=== PATIENT | female | born 1955 | race Caucasian/White ===

== ENCOUNTER 2019-02-08 19:51 | Observation (INO) | payer MEDICARE ==
[2019-02-08 20:23] LABS: #Basophils 0.1 thou/uL (0.0-0.2); #Eosinphils 0.2 thou/uL (0.0-0.7); #Lymphocytes 3.3 thou/uL (1.20-3.40); #Monocytes 0.9 thou/uL (0.11-0.59); #Neutrophils 7.2 thou/uL (1.40-6.50); %Eosinophils 1.9 % (0.0-10.0); %Lymphocytes 27.7 % (21.0-51.0); %Monocytes 7.8 % (0.0-10.0); %Neutrophils 61.6 % (42.0-75.0); Hemoglobin 13.7 g/dL (12.0-16.0); Mean Corpuscular Hemoglobin 29.7 pg (27.0-31.0); Mean Corpuscular Volume 92.9 fL (78.0-98.0); Mean Platelet Volume 8.7 fL (7.4-10.4); Platelet Count 285 thou/uL (130-400); RBC Distribution Width 12.7 % (11.5-14.5); Red Blood Cell (RBC) Count 4.62 mill/uL (4.20-5.40); White Blood Cell (WBC) Count 11.7 thou/uL (4.8-10.8)
--- NOTE | 2019-02-08 20:30 | RAD ---
Frontal radiograph chest: 02/08/2019 COMPARISON: 01/27/2016 HISTORY: Headache, fall FINDINGS: Stable transvenous pacing device and midline sternotomy wires. No pneumothorax or pleural f luid. No focal consolidation or alveolar edema. IMPRESSION: No acute findings.
[2019-02-08 20:41] LABS: ALT (SGPT) 17 U/L (8-55); AST (SGOT) 20 U/L (5-34); Albumin 3.8 g/dL (3.4-4.8); Alkaline Phosphatase 124 U/L (40-150); Anion Gap 14 mmol/L (10-20); BUN (Urea Nitrogen) 13 mg/dL (9.8-20.1); Bilirubin, Total 0.4 mg/dL (0.2-1.2); Calc. Creatinine Clearance 0 mL/min (70-130); Calcium 8.8 mg/dL (7.8-10.44); Carbon Dioxide 24 mmol/L (23-31); Chloride 105 mmol/L (98-107); Estimated GFR-MDRD 51; Globulin 2.7 g/dL (2.4-3.5); Glucose 103 mg/dL (80-115); Magnesium 1.9 mg/dL (1.6-2.6); Potassium 3.1 mmol/L (3.5-5.1); Protein, Total 6.5 g/dL (6.0-8.3); Sodium 140 mmol/L (136-145)
--- NOTE | 2019-02-08 20:59 | CT ---
Head CT without contrast 02/08/2019: COMPARISON: 04/24/2015 HISTORY: Fall, trauma, pain TECHNIQUE: Axial CT imaging at 5 mm intervals from vertex through skull base without contrast FINDINGS: The imaged paranasal sinuses are well aerated. There is partial opacification of the mastoi d air cells inferiorly on the left. No displaced calvarial fracture. No intracranial hemorrhage, midline shift, or mass effect. IMPRESSION: No intracranial hemorrhage or displaced calvarial fracture.
--- NOTE | 2019-02-08 21:03 | CT ---
CT cervical spine without contrast: 02/08/2019 COMPARISON: None available HISTORY: Fall, trauma, pain TECHNIQUE: Axial CT imaging at 2.5 mm intervals through the cervical spine without contrast. Coronal and sagittal reformatted imaging obtained. FINDINGS: C1 ring is intact. Midline sternotomy wires are present. Transvenous pacing device noted. T here is degenerative change at the atlantoaxial interspace. There is posterior osteophyte formation at C7-T1. Imaged lung apices unremarkable. No evidence for fracture or dislocation. No prevertebral soft tissue swelling. No anterolisthesis or retrolisthesis. Craniocervical junction, atlantoaxial interspace, dens, and cervicothoracic junction appear unremarkable. IMPRESSION: No acute findings.
[2019-02-08] MEDS ORDERED: Acetaminophen 325 MG TAB PO PRN (21:49)
[2019-02-08] MEDS ORDERED: Potassium Chloride 20 MEQ TAB PO SCH (22:00)
--- NOTE | 2019-02-08 22:26 | PDOC.FPRHP ---
- Allergies/Adverse Reactions Allergies Allergy/AdvReac Type Severity Reaction Status Date / Time cephalexin monohydrate Allergy Severe Swollen Verified 01/27/16 23:52 [From Keflex] Lips cinnamon Allergy Intermediate Verified 01/27/16 23:52 hydromorphone HCl Allergy Intermediate Verified 01/27/16 23:52 [From Dilaudid] iodine Allergy Intermediate Verified 01/27/16 23:52 ondansetron Allergy Intermediate Verified 01/27/16 23:52 Penicillins Allergy Intermediate Verified 01/27/16 23:52 - Home Medications Medication Instructions Recorded Confirmed Type ALPRAZolam [Xanax] 1 mg PO TID 04/25/15 02/08/19 History Clopidogrel Bisulfate [Clopidogrel] 75 mg PO DAILY 04/25/15 02/08/19 History Furosemide [Lasix] 40 mg PO DAILY 04/25/15 02/08/19 History Nitroglycerin [Nitrostat] 0.4 mg SL Q5MIN PRN 04/25/15 02/08/19 History DULoxetine [Cymbalta] 60 mg PO DAILY #0 cap 04/27/15 02/08/19 Rx Metoprolol Tartrate [Lopressor] 12.5 mg PO BID #0 tab 04/27/15 02/08/19 Rx Acetaminophen With Codeine 1 tablet PO Q6HR PRN 01/27/16 02/08/19 History [Tylenol with Codeine #3] Aspirin 325 mg PO DAILY 01/27/16 02/08/19 History Cyclobenzaprine [Flexeril] 10 mg PO TID PRN 01/27/16 02/08/19 History Isosorbide Mononitrate [Imdur ER] 30 mg PO DAILY 01/27/16 02/08/19 History Promethazine HCl 25 mg PO QID 01/27/16 02/08/19 History hydrOXYzine HCl [Hydroxyzine HCl] 25 mg PO QID 01/27/16 02/08/19 History Zolpidem Tartrate 10 mg PO HS PRN 01/28/16 02/08/19 History Pantoprazole [Protonix] 40 mg PO DAILY #0 tab 01/31/16 02/08/19 Rx Methocarbamol [Robaxin-750] 750 mg PO DAILY 02/08/19 02/08/19 History Potassium Chloride 1 tab PO BID 02/08/19 02/08/19 History Pregabalin [Lyrica] 75 mg PO DAILY 02/08/19 02/08/19 History Sacubitril/Valsartan 49/51 1 tab PO DAILY 02/08/19 02/08/19 History [Entresto 49 mg-51 mg Tablet] Spironolactone 25 mg PO DAILY 02/08/19 02/08/19 History busPIRone HCl [Buspar] 10 mg PO DAILY 02/08/19 02/08/19 History tiZANidine HCl [Tizanidine HCl] 1 tab PO DAILY 02/08/19 02/08/19 History - History PMHx: PSHx: FHx: Social: - Vital signs BP: [] HR: [] RR: [] Tmax: [] Pox: []% on [] Wt: [] FMR H&P: Results - Labs Result Diagrams: 02/08/19 20:13 02/08/19 20:13 Lab results: WBC 11.7 thou/uL (4.8-10.8) H 02/08/19 20:13 Hgb 13.7 g/dL (12.0-16.0) 02/08/19 20:13 Hct 42.9 % (36.0-47.0) 02/08/19 20:13 MCV 92.9 fL (78.0-98.0) 02/08/19 20:13 Plt Count 285 thou/uL (130-400) 02/08/19 20:13 Neutrophils % 61.6 % (42.0-75.0) 02/08/19 20:13 Sodium 140 mmol/L (136-145) 02/08/19 20:13 Potassium 3.1 mmol/L (3.5-5.1) L 02/08/19 20:13 Chloride 105 mmol/L (98-107) 02/08/19 20:13 Carbon Dioxide 24 mmol/L (23-31) 02/08/19 20:13 BUN 13 mg/dL (9.8-20.1) 02/08/19 20:13 Creatinine 1.09 mg/dL (0.6-1.1) 02/08/19 20:13 Glucose 103 mg/dL (80-115) 02/08/19 20:13 Calcium 8.8 mg/dL (7.8-10.44) 02/08/19 20:13 Total Bilirubin 0.4 mg/dL (0.2-1.2) 02/08/19 20:13 AST 20 U/L (5-34) 02/08/19 20:13 ALT 17 U/L (8-55) 02/08/19 20:13 Alkaline Phosphatase 124 U/L (40-150) 02/08/19 20:13 Serum Total Protein 6.5 g/dL (6.0-8.3) 02/08/19 20:13 Albumin 3.8 g/dL (3.4-4.8) 02/08/19 20:13 FMR H&P: Upper Level - Plan Date/Time: 02/08/192214 PCP: PHIL Funk in [place], [place] HPI: This is a 63 yo F being admitted for workup of syncope. Significant hx includes TIAx4 and CVA x1 by her description, CABG, Stent x5, pacemaker. Her chief complaint for presenting to the ER was cramping and twitching in my legs. She states that this morning around 430 AM she was walking to the kitchen to get some water and all the sudden blacked out, she states her strength all over her body went weak and she hit her head on the ground. She thinks she passed out for about 10 min and when she woke up she had urinated on herself and was confused. She is not exactly sure how long she had passed out but knows it was not past 5am. She did not come to the ER until night time because she felt ok during the day but then noticed her legs kept shaking. She was worried about a heat stroke because she went to the store yesterday and it was very hot outside. Does not drink much water, tea and dr pepper. Has A/C in her house, but states she felt hot all day. She is usually able to ambulate with cane and walker. In the ED the patient is able to ambulate to the restroom on her own. PMH: CABG, parox. Afib, 5 stents, pacemaker, HLD, HTN, IBS, RLS, fibromyalgia, neuropathy, CVA x1, TIAx4 PSH: rios, cabg, hyst Meds: see above Allergies: see above Soc Hx: smoke since age 8, 2ppd at the most, 1ppd now, denies alcohol/drugs Fm Hx: non-contributory ED course: CT head neck no acute process REVIEW OF SYSTEMS: Gen: no fever, chills, or sweats Neuro: see hpi Eyes: no visual changes ENT: no hearing changes, no sore throat, no congestion Resp: denies cough, SOB Card: no chest pain, denies palpitations GI: vomited x1 today, no nausea or abd pain currently MSK: chronic joint pain Heme: no easy bruising/bleeding, no blood thinners (Plavix, ASA) Skin: no rash, no erythema Vitals: BP: 135/63, Pulse: 80, Resp: 18, O2 sat: 96 on Room Air Wt: 65 kg PHYSICAL EXAMINATION: General: NAD, alert and oriented x3 HEENT: PERRLA, EOMI, normal sclera, oropharynx without erythema or exudate Neck: Supple. Full ROM. Heart/Cardiovascular System: RRR, Cap refill < 3 seconds, no rub, no murmur Lungs/Respiratory System: CTA-B, no resp distress Abdomen/Gastro-Intestinal System: no abdominal tenderness, normal bowel sounds Extremities: Warm extremities. No cyanosis or edema Neuro: No gross deficits appreciated. CN 2-12 grossly intact. Visual dang intact. Family Assessment Worker strength 5/5 bilaterally, no upper extremity or lower extremity drift, no dysmetria, no dysdiadocokinesia, no nystagmus, normal gait with walker , HINTS negative Psychiatry: Awake, Alert and cooperative with exam Skin: No lesions, rashes, or ulcers Musculoskeletal: Full ROM EKG: NSR, no acute abnormalities A/P: # Syncope 2/2 dehydration vs seizure vs TIA vs arrhythmia vs idiopathic - ordered orthostatics, prolactin, ck, repeat trop, carotid US, UDS, telemetry - suspect dehydration as primary source based on history - NIHSS: 0, HINTS neg- TIA possible with her history, consider MRI if no other source emerges - NS 500ml bolus, 100ml/hr # Polypharmacy - could have contributed, wean on d/c as able # Afib (per chart review), pacemaker - RRR currently, no blood thinners - consider embolic source, consider KIMBERLY - does not appear to be most likely source currently - telemetry, interrogate pacemaker # CHF - EF 50-55% in January 2016 - ordered BNP # hx CABG, stents x5 - repeat trop # HTN, HLD - home meds # chronic pain - Home tyl #3 Fluids: NS 100ml/hr Code: full PPx: SCDmiguelx Dispo: Obs Addendum - Attending - Attending Attestation Date/Time: 02/08/19 [id number] I personally evaluated the patient and discussed the management with Dr. Godfrey I agree with the History, Examination, Assessment and Plan documented above with any addition or exceptions noted below.
[2019-02-08] MEDS ORDERED: Nitroglycerin 0.4 MG TAB (25 Tab Bottle) SL PRN (22:31)
[2019-02-08] MEDS ORDERED: Acetaminophen/Codeine 30-300mg Tablet PO PRN (22:31)
[2019-02-08] MEDS ORDERED: PROVENTIL INHALER 6.7 G (200 INHALATIONS) INH PRN (23:59)
[2019-02-09] MEDS ORDERED: Zolpidem Tartrate 5 MG TAB PO PRN (00:01)
[2019-02-09 00:15] VITALS: BMI 28.1
[2019-02-09 00:21] LABS: Troponin I Less than 0.010 ng/mL (< 0.028)
[2019-02-09] MEDS: Sodium Chloride 0.9% 1,000 ML IV SCH ×2 (00:25→07:45)
[2019-02-09] MEDS ORDERED: DULoxetine 60 MG CAP PO SCH ×3 (00:45→09:00)
[2019-02-09] MEDS ORDERED: Nicotine 14 MG PATCH TD SCH (01:00)
[2019-02-09 02:13] LABS: Bilirubin Negative (Negative); Blood, Urine Negative (Negative); Clarity Clear (Clear); Glucose, Urine (Dipstick) Normal (Negative); Leukocyte 25 Leu/uL (Negative); Nitrite Negative (Negative); Protein, Urine (Dipstick) Negative (Neg-Trace); Squamous Epithelial 0-3 HPF (0-3); Urobilinogen Normal mg/dL (Less than 2)
[2019-02-09 02:14] LABS: Bacteria/HPF 1+ HPF (None Seen)
[2019-02-09 02:27] LABS: Cocaine Metabolite Screen Not Detected (NotDetected); Medtox Reader # READER 4; Methamphetamine Not Detected (NotDetected); Phencyclidine (PCP) Not Detected (NotDetected); THC/Cannabinoid Screen Not Detected (NotDetected)
[2019-02-09 02:28] LABS: Amphetamine Not Detected (NotDetected); Barbiturates Screen Not Detected (NotDetected); Benzodiazepine Screen Not Detected (NotDetected); Medtox Control Line Valid? VALID (VALID); Methadone Not Detected (NotDetected); Opiate Screen Detected (NotDetected); Oxycodone Screen Not Detected (NotDetected); Tricyclic Screen Not Detected (NotDetected)
--- NOTE | 2019-02-09 06:30 | PDOC.FM ---
- Subjective Subjective: Patient is seen lying flat in bed this morning watching TV. She was admitted to the night team late last night after a syncopal episode where she was unconscious for approximately 10 minutes (self-reported, non-witnessed) & hit her head, as well as her legs have been "twitching" involuntarily. This morning the patient states she feels well and does not have any current complaints.. Her legs have not had any more symptoms overnight. Patient has an extensive cardiac history with multiple stent placements and has a pacemaker in place that was interrogated approx. 3 months ago with no issues found. Patient states she sees multiple physicians in the [place] area, including Cardiology. She states she has an appointment with her PCP in [place] on Sunday this week. ROS: Denies fever/chills, chest pain, palpitations, cough, congestion, shortness of breath, vision or hearing changes, nausea, vomiting, abdominal pain , diarrhea, constipation, easy bruising/bleeding, rash. Has chronic pain in her legs. - Objective MAR Reviewed: Yes Vital Signs & Weight: Vital Signs (12 hours) Temp Pulse Resp BP Pulse Ox 02/09/19 03:34 98.2 F 73 18 107/62 96 02/08/19 23:07 98.1 F 72 18 129/64 97 Weight Admit Weight 67.676 kg Weight 67.676 kg I&O: 02/07/19 02/08/19 02/09/19 06:59 06:59 06:59 Intake Total 900 Output Total 200 Balance 700 Result Diagrams: 02/09/19 06:43 02/09/19 06:43 Radiology Reviewed by me: Yes Radiology: CXR: no acute pathology Head CT: no intracranial hemorrhage or displaced fracture Cervical CT: no acute pathology Phys Exam - Physical Examination Constitutional: NAD HEENT: PERRLA, moist MMs, sclera anicteric Neck: no JVD, supple, full ROM Respiratory: no wheezing, clear to auscultation bilateral Cardiovascular: RRR, no significant murmur No carotid bruits. Gastrointestinal: soft, non-tender, positive bowel sounds Musculoskeletal: pulses present 1+ non-pitting edema; Strength in bilateral UE & LE is 4/5 Neurological: non-focal, normal sensation, moves all 4 limbs Normal gait with walker Psychiatric: normal affect, A&O x 3 Skin: no rash, normal turgor Dx/Plan (1) Syncope Code(s): R55 - SYNCOPE AND COLLAPSE Status: Acute Qualifiers: Syncope type: heat syncope Encounter type: initial encounter Qualified Code(s): T67.1XXA - Heat syncope, initial encounter (2) Polypharmacy Code(s): Z79.899 - OTHER ASSISTED (CURRENT) DRUG THERAPY Status: Chronic (3) Atrial fibrillation Code(s): I48.91 - UNSPECIFIED ATRIAL FIBRILLATION Status: Chronic Qualifiers: Atrial fibrillation type: paroxysmal Qualified Code(s): I48.0 - Paroxysmal atrial fibrillation (4) CHF (congestive heart failure) Code(s): I50.9 - HEART FAILURE, UNSPECIFIED Status: Chronic Qualifiers: Heart failure type: unspecified Heart failure chronicity: chronic Qualified Code(s): I50.9 - Heart failure, unspecified (5) HTN (hypertension) Code(s): I10 - ESSENTIAL (PRIMARY) HYPERTENSION Status: Chronic Qualifiers: Hypertension type: essential hypertension Qualified Code(s): I10 - Essential (primary) hypertension (6) HLD (hyperlipidemia) Code(s): E78.5 - HYPERLIPIDEMIA, UNSPECIFIED Status: Chronic Qualifiers: Hyperlipidemia type: mixed hyperlipidemia Qualified Code(s): E78.2 - Mixed hyperlipidemia (7) Chronic pain Code(s): G89.29 - OTHER CHRONIC PAIN Status: Chronic Qualifiers: Chronic pain type: chronic pain syndrome Qualified Code(s): G89.4 - Chronic pain syndrome (8) Hypokalemia Code(s): E87.6 - HYPOKALEMIA Status: Acute (9) CAD (coronary artery disease) Code(s): I25.10 - ATHSCL HEART DISEASE OF [place] CORONARY ARTERY W/O ANG PCTRS Status: Chronic Qualifiers: Coronary Disease-Associated Artery/Lesion type: [place] artery [place] vs. transplanted heart: [place] heart (10) Tobacco dependence Code(s): F17.200 - NICOTINE DEPENDENCE, UNSPECIFIED, UNCOMPLICATED Status: Chronic (11) GERD (gastroesophageal reflux disease) Code(s): K21.9 - GASTRO-ESOPHAGEAL REFLUX DISEASE WITHOUT ESOPHAGITIS Status: Chronic Qualifiers: Esophagitis presence: without esophagitis Qualified Code(s): K21.9 - Gastro -esophageal reflux disease without esophagitis - Plan Plan: 1. Syncope, likely secondary to dehydration. R/O seizure vs TIA vs arrhythmia - orthostatics negative, prolactin 15.88, CK 57, Trop neg x2, UDS positive for opioids only (home med Tylenol #3) - carotid U/S to be completed this morning - place on telemetry - suspect dehydration as primary source based on history - NIHSS: 0, HINTS neg- TIA possible with her history, consider MRI if no other source emerges - NS 500ml bolus, 100ml/hr 2. Polypharmacy - could have contributed, advise her to follow up with PCP appointment on Sunday in [place] as he is primary prescriber per patient 3. Afib with pacemaker placed - Pacemaker last interrogated 3 months ago per patient who states no issued found thin - RRR currently, no blood thinners - consider embolic source, consider KIMBERLY if clinical deterioration or symptoms resume - telemetry, interrogate pacemaker 4. CHF, controlled on home meds - EF 50-55% in January 2016, patient states she had a more recent ECHO completed by medical illustrator in [place] - ordered BNP 5. Hx of CAD - hx of CABG, stents x5 - troponins neg x2 6. HTN - continue home meds, BP stable 7. HLD - Lipid panel: Tri 174, total chol 199, LDL 129, HDL 35 - currently on no home meds, states she used to take a statin - will order Pravastatin 20mg to start, will advise her to take prescription with her to the PCP appointment this week 8. Chronic pain syndrome - Home tyl #3 & Neurontin continued 9. GERD -home med Ranitidine, equivalent of Famotidine ordered 1x dose for heartburn sx 10. Hypokalemia -K 3.1, given 20mEQ of Potassium Fluids: NS 100ml/hr Code: full PPx: SCD, lovenox Dispo: Obs, with expected LOS <24hrs Addendum - Attending - Attending Attestation Date/Time: 02/09/19 [id number] I personally evaluated the patient and discussed the management with Dr. Montes I agree with the History, Examination, Assessment and Plan documented above with any addition or exceptions noted below. Syncopal episode most likely multifactorial concerned with polypharmacy and sedative effects. Recommend continued sedative Drug holiday advance activity and if w/u non revealing could continue further outpatient work up.
[2019-02-09 07:14] LABS: #Basophils 0.1 thou/uL (0.0-0.2); #Eosinphils 0.2 thou/uL (0.0-0.7); #Lymphocytes 3.4 thou/uL (1.20-3.40); #Monocytes 0.7 thou/uL (0.11-0.59); #Neutrophils 3.9 thou/uL (1.40-6.50); %Basophils 0.9 % (0.0-1.0); %Eosinophils 2.5 % (0.0-10.0); %Monocytes 8.5 % (0.0-10.0); %Neutrophils 47.1 % (42.0-75.0); Mean Corpuscular Hemoglobin 29.9 pg (27.0-31.0); Mean Corpuscular Volume 93.4 fL (78.0-98.0); Mean Platelet Volume 8.8 fL (7.4-10.4); Platelet Count 225 thou/uL (130-400); RBC Distribution Width 12.6 % (11.5-14.5); Red Blood Cell (RBC) Count 4.33 mill/uL (4.20-5.40); White Blood Cell (WBC) Count 8.3 thou/uL (4.8-10.8)
[2019-02-09 07:33] LABS: Anion Gap 12 mmol/L (10-20); BUN (Urea Nitrogen) 14 mg/dL (9.8-20.1); Calc. Creatinine Clearance 73 mL/min (70-130); Carbon Dioxide 21 mmol/L (23-31); Cardiac Risk 5.7 (Less than 4.5); Chloride 110 mmol/L (98-107); Cholesterol 199 mg/dl (< 200 Desired); Estimated GFR-MDRD 68; Glucose 94 mg/dL (80-115); HDL Cholesterol 35 mg/dL (>60 Neg Risk); LDL Cholesterol, Calculated 129 mg/dL; Potassium 3.4 mmol/L (3.5-5.1); Sodium 140 mmol/L (136-145); Triglycerides 174 mg/dL (Less than 150)
[2019-02-09] MEDS ORDERED: Potassium Chloride 20 MEQ TAB PO SCH (08:00)
[2019-02-09] MEDS ORDERED: Enoxaparin Sodium 40 MG/0.4 ML SYRINGE SC SCH (09:00)
[2019-02-09] MEDS ORDERED: Metoprolol Tartrate 25 MG TAB PO SCH ×2 (09:00)
[2019-02-09] MEDS ORDERED: Spironolactone 25 MG TAB PO SCH (09:00)
[2019-02-09] MEDS ORDERED: Sacubitril 49 MG/Valsartan 51 MG TABLET PO SCH (09:00)
[2019-02-09] MEDS ORDERED: Clopidogrel Bisulfate 75 MG TAB PO SCH (09:00)
[2019-02-09] MEDS ORDERED: Cholecalciferol (Vitamin D3) 400 UNITS TAB PO SCH (09:00)
[2019-02-09] MEDS ORDERED: Magnesium Oxide 400 MG TAB PO SCH (09:00)
[2019-02-09] MEDS ORDERED: Aspirin 325 MG TAB PO SCH (09:00)
--- NOTE | 2019-02-09 09:43 | ULT ---
CAROTID ULTRASOUND: COMPARISON: None. HISTORY: Syncope. TECHNIQUE: Multiplanar, fleming scale, and color Doppler images are obtained in a carotid ultrasound. Spectral [place] lysis of the Doppler waveforms was performed. FINDINGS: No significant plaque if visualized in either common or internal carotid artery. The Doppler wavefor ms are normal bilaterally. Peak systolic velocity in the right ICA is 77 cm/s. Peak systolic velocity in the right CCA is 84 cm /s. The right ICA/CCA ratio is 0.9. Peak systolic velocity in the left ICA is 122 cm/s. Peak systolic velocity in the left CCA is 96 cm/ s. The left ICA/CCA ratio is 1.3. Both vertebral arteries demonstrate antegrade flow without focal stenosis. IMPRESSION: No evidence of hemodynamically significant stenosis. POS: [facility]
[2019-02-09 12:15] VITALS: BP 111/56; TEMP 97.7
[2019-02-09] MEDS ORDERED: Famotidine 20 MG TAB PO SCH (12:15)
--- NOTE | 2019-02-10 14:56 | DIS ---
DATE OF ADMISSION: 02/08/2019 DATE OF DISCHARGE: 02/09/2019 ADMITTING ATTENDING: Eh Cook MD DISCHARGE ATTENDING: Eh Cook MD RESIDENT: Lee Ann Montes DO CONSULTS: OT eval-treat. PROCEDURES: Carotid Doppler. PRIMARY DIAGNOSIS: Syncope, likely secondary to dehydration. SECONDARY DIAGNOSES: 1. Polypharmacy. 2. Atrial fibrillation with pacemaker placed. 3. Congestive heart failure. 4. Coronary artery disease. 5. Hypertension. 6. Hyperlipidemia. 7. Chronic pain syndrome. 8. Gastroesophageal reflux disease. 9. Hypokalemia. DISCHARGE MEDICATIONS: 1. Furosemide (Lasix) 20 mg p.o. daily. 2. Xanax 1 mg p.o. t.i.d. 3. Nitroglycerin 0.4 mg sublingual every 5 minutes as needed. 4. Clopidogrel bisulfate 75 mg p.o. daily. 5. Acetaminophen with codeine 300 mg-30 mg 1 tablet p.o. q.6 hours as needed. 6. Cyclobenzaprine (Flexeril) 10 mg p.o. t.i.d. as needed. 7. Isosorbide mononitrate (Imdur) extended release 30 mg p.o. daily. 8. Aspirin 81 mg p.o. daily. 9. Hydroxyzine HCL 25 mg p.o. q.i.d. as needed. 10. Promethazine HCL 25 mg p.o. q.i.d. as needed. 11. Zolpidem tartrate 5 mg p.o. at bedtime as needed. 12. Robaxin 750 mg p.o. at bedtime. 13. Tizanidine HCL 4 mg 1 tablet p.o. daily as needed. 14. Buspirone HCL 10 mg p.o. daily. 15. Spironolactone 25 mg p.o. at bedtime. 16. Entresto 49 mg/51 mg 1 tablet p.o. b.i.d. 17. Potassium chloride 10 mEq 1 tablet p.o. b.i.d. 18. Pregabalin (Lyrica) 75 mg p.o. b.i.d. 19. Vitamin D3 of 400 units p.o. daily. 20. Ventolin HFA inhaler 2 puffs q.4 hours as needed. 21. Ranitidine 150 mg p.o. b.i.d. 22. Magnesium 400 mg p.o. daily. 23. Pantoprazole (Protonix 40 mg p.o. b.i.d.). 24. Metoprolol tartrate 25 mg p.o. daily. 25. Duloxetine (Cymbalta) 60 mg p.o. b.i.d. 26. Acetaminophen 650 mg p.o. q.4 hours as needed. 27. Potassium chloride 20 mEq p.o. b.i.d. 28. Pravastatin sodium (Pravachol) 20 mg p.o. at night. DISCONTINUED MEDICATIONS: None. HPI/HOSPITAL COURSE: Ms. Eisenberg is a 63-year-old female with a significant past medical history including TIA x4 and CVA x1, CABG, stent x5, and a pacemaker, who presented to the [facility] ER on February 09, 2019, after a syncopal episode. She also complained of cramping and "twitching in her legs." She states that the morning of February 08, around 4.30 a.m. she was walking around her kitchen to get some water and then suddenly blacked out. She stated that she felt like the strength all over her body went weak and she hit her head on the ground. She remembers looking at the clock and thinks she passed out for about 10 minutes and when she woke up she had urinated on herself and was confused. This episode was not witnessed by anyone. She chose not to come to the ER until later that night, because she felt okay during the day, but then noticed her legs kept periodically shaking. She was worried about a heat stroke, because she had gone to the store yesterday and had spent a lot of time outside, where it was very hot. She does not drink much water or tea, but does drink lots of Dr Pepper. She has air conditioning in her house , but stated she felt hot all day long. She is usually able to get around and ambulate okay with a cane and walker at baseline. The patient was seen and evaluated by resident physician Dr. Sb Godfrey in the ER , who subsequently admitted her for observation and a syncopal workup. Upon arrival to the floor, the patient reported further medical history that she usually sees a gas distribution and emergency clerk and PCP in [place]. She has been having a cardiac workup over the past several years. The patient states that she had a Carotid Doppler done 3 years ago and she was told at that time that she would need surgery, but at that time the patient was having other medical issues with GI symptoms and never followed up with the gas distribution and emergency clerk until earlier this year. On the morning of February 09, she was seen by resident physician Dr. Montes. At that time, she stated that she did not have any complaints and that the twitching in her legs had self resolved. Later that morning, a carotid Doppler was completed. The report showed that there was no significant stenosis of the carotid arteries. The patient voiced that she had an appointment with her PCP in [place] on February 12. She also stated she had a Cardiology appointment "in a few weeks." On the afternoon of February 09, 2019, the patient was deemed stable for discharge back home. The patient was resumed on all of her home medications and new medication, pravastatin 20 mg was started upon discharge. She was encouraged to follow up to her primary care physician and gas distribution and emergency clerk for further follow up from this hospital stay. PERTINENT LABS: Admission labs, February 08: 1. CBC: White blood cells 11.7, hemoglobin 13.7, hematocrit 42.9, and platelet count 285. 2. CMP: Sodium 140, potassium 3.1, chloride 105, carbon dioxide 24, BUN 13, creatinine 1.09, glucose 103, GFR 51, calcium 8.8, magnesium 1.9, total bilirubin 0.4, AST 20, ALT 17, and ALK phos 124. 3. Troponin: Negative x2. 4. BNP 16.1. 5. Prolactin 15.88. Labs on February 09: 1. UDS-positive for opiates only. 2. UA, negative. 3. CBC: WBC 8.3, hemoglobin 13, hematocrit 40.4, and platelet count 225. 4. CMP: Sodium 140, potassium 3.4, chloride 110, carbon dioxide 21, BUN 14, creatinine 0.85, glucose 94, GFR 68, and calcium 9. 5. Lipid panel: Triglycerides 174, total cholesterol 199, LDL 129, and HDL 35. PROCEDURES: 1. Cervical spine CT: No acute findings. 2. Head CT: No intracranial hemorrhage or displaced calvarial fracture. 3. Chest x-ray: No acute findings. 4. Carotid Doppler study: No evidence of hemodynamically significant stenosis. DISPOSITION: Stable. DISCHARGE INSTRUCTIONS: 1. Location: Home. 2. Diet: Heart healthy. 3. Activity: As tolerated. 4. Follow up in 3 days with primary care provider and follow up with gas distribution and emergency clerk in 1 to 2 weeks, both in [place]. Job ID: [id number]
== END 2019-02-09 13:58 | disposition home or self-care (01) ==
LOC: ERS 19:51 → 2SW 21:25
PROVIDERS: ADMIT Family Medicine; ATTEND Family Medicine
DX: R55 Syncope and collapse (principal); I48.0 Paroxysmal atrial fibrillation; I11.0 Hypertensive heart disease with heart failure; I50.9 Heart failure, unspecified; I25.10 Atherosclerotic heart disease of native coronary artery without angina pectoris; E78.5 Hyperlipidemia, unspecified; G89.4 Chronic pain syndrome; K21.9 Gastro-esophageal reflux disease without esophagitis; E87.6 Hypokalemia; K58.9 Irritable bowel syndrome, unspecified; G25.81 Restless legs syndrome; M79.7 Fibromyalgia; F41.9 Anxiety disorder, unspecified; F32.9 Major depressive disorder, single episode, unspecified; F17.210 Nicotine dependence, cigarettes, uncomplicated; Z95.0 Presence of cardiac pacemaker; Z95.1 Presence of aortocoronary bypass graft; Z86.73 Personal history of transient ischemic attack (TIA), and cerebral infarction without residual deficits; Z88.1 Allergy status to other antibiotic agents; Z88.5 Allergy status to narcotic agent; Z91.041 Radiographic dye allergy status; Z88.0 Allergy status to penicillin; Z88.8 Allergy status to other drugs, medicaments and biological substances; Z91.018 Allergy to other foods; Z79.82 Long term (current) use of aspirin; Z79.02 Long term (current) use of antithrombotics/antiplatelets; Z79.899 Other long term (current) drug therapy
CPT/HCPCS: 70450; 71045; 72125; 80048; 80053; 80061; 80306; 82550; 83735; 83880; 84146; 84484 ×2; 85025 ×2; 93005; 93880; 96360; 96361; 96372; 97116; 97139; 99285; G0378 ×3; 36415; 81003; 81015; J1650